=== PATIENT | female | born 1990 | race Caucasian/White ===

== ENCOUNTER 2017-06-26 16:50 | Emergency (ER) | payer MEDICAID ==
[~2017-06-26] VITALS: Ht 157.5 cm; Wt 43.1 kg
== END 2017-06-27 14:25 | disposition home or self-care (01) ==
LOC: ED 16:50
DX: Z00.00 Encounter for general adult medical examination without abnormal findings (principal)
CPT/HCPCS: 80053; 80176; 81001; 84703; 85025; 99283; G0480

== ENCOUNTER 2017-10-13 11:44 | Emergency (ER) | payer MEDICAID ==
[~2017-10-13] VITALS: Ht 157.5 cm; Wt 40.8 kg
== END 2017-10-14 01:20 | disposition home or self-care (01) ==
LOC: ED 11:44
DX: F15.129 Other stimulant abuse with intoxication, unspecified (principal); Z00.8 Encounter for other general examination
CPT/HCPCS: 80053; 80176; 81001; 84443; 84703; 85025; 96372; 99283; G0480; J2250; J3486